=== PATIENT | male | born 1935 | race Caucasian/White ===

== ENCOUNTER 2016-09-23 14:14 | Emergency (ER) | payer MEDICARE, MEDICAID ==
[2016-09-23 14:25] VITALS: BP 148/70
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
--- NOTE | 2016-09-24 10:28 | Diagnostic Imaging Report ---
Right foot (3 views) HISTORY: Pain, trauma No acute bony abnormality seen at this time. No fractures. Joint spaces appear normal. IMPRESSION: No acute abnormalities. In the presence of recent trauma and persistent symptoms, a repeat radiograph in 5-7 days may be helpful for detection of a subtle or occult fracture.
== END 2016-09-23 16:30 | disposition home or self-care (01) ==
LOC: ER 14:14
DX: S97.81XA Crushing injury of right foot, initial encounter (principal); X58.XXXA Exposure to other specified factors, initial encounter; Y93.89 Activity, other specified; Y92.89 Other specified places as the place of occurrence of the external cause; Y99.8 Other external cause status
CPT/HCPCS: 99284; 96372; 73630; J1885; Z7502